=== PATIENT | male | born 1990 | race Hispanic/Latino ===

== ENCOUNTER 2016-08-16 22:23 | Emergency (ER) | payer SELFPAY ==
[2016-08-16 22:37] VITALS: PULSE 97; RESP 16; TEMP 98.5; O2SAT 97
[2016-08-16 22:52] VITALS: BP 130/59
[2016-08-16] MEDS ORDERED: TDAP Vaccine 0.5 mL Syr IM ONE (23:05)
--- NOTE | 2016-08-16 23:43 | ED PDOC ---
HPI: Skin/Bite Injury Time Seen by Provider: 08/16/16 22:54 Chief Complaint (Nursing): ENT Problem Chief Complaint (Provider): Left ear laceration History Per: Patient History/Exam Limitations: no limitations Onset/Duration Of Symptoms: Mins Current Symptoms Are (Timing): Still Present Quality Of Symptoms: Painful Severity: Mild Pain Scale Rating Of: 3 Additional Complaint(s): 26 yo male with no medical problems presents with left ear laceration. Pt was playing hurling and was hit in the left ear with a turcios (axe shaped stick) . No LOC. Pt denies headache, nausea, change in vision. Past Medical History Reviewed: Historical Data, Nursing Documentation, Vital Signs Vital Signs: Last Vital Signs Temp 98.5 F 08/16/16 22:34 Pulse 97 H 08/16/16 22:34 Resp 16 08/16/16 22:34 BP 130/59 L 08/16/16 22:34 Pulse Ox 97 08/16/16 22:34 - Medical History PMH: No Chronic Diseases - Family History Family History: States: No Known Family Hx - Allergies Allergies/Adverse Reactions: Allergies Allergy/AdvReac Type Severity Reaction Status Date / Time No Known Allergies Allergy Verified 08/16/16 22:34 Review of Systems ROS Statement: Except As Marked, All Systems Reviewed And Found Negative Skin: Positive for: Other (LAceration) Physical Exam - Reviewed Nursing Documentation Reviewed: Yes Vital Signs Reviewed: Yes - Physical Exam Appears: Positive for: Well, Non-toxic, No Acute Distress Head Exam: Positive for: ATRAUMATIC, NORMAL INSPECTION, NORMOCEPHALIC Skin: Positive for: Warm. Negative for: Normal Color (1 cm superficial Laceration left ear between antihelix stem and helix, mild bleeding ) Eye Exam: Positive for: Normal appearance, EOMI, PERRL ENT: Positive for: Normal ENT Inspection Neck: Positive for: Normal, Painless ROM Respiratory: Negative for: Accessory Muscle Use, Respiratory Distress Back: Positive for: Normal Inspection Extremity: Positive for: Normal ROM Neurologic/Psych: Positive for: Alert, Oriented - ECG O2 Sat by Pulse Oximetry: 97 Pulse Ox Interpretation: Normal Medical Decision Making Medical Decision Making: Wound irrigated. Steri-strips applied for good wound closure. Disposition - Clinical Impression Clinical Impression: Laceration of left ear, Tetanus toxoid vaccination administered at current visit - Patient ED Disposition Is Patient to be Admitted: No Counseled Patient/Family Regarding: Diagnosis - Disposition Referrals: [facility] [place] [Outside] Disposition: Routine/Home Disposition Time: 23:49 Condition: GOOD Instructions: Meir (ED)
== END 2016-08-17 00:02 | disposition home or self-care (01) ==
LOC: H.ER 22:23
DX: S01.312A Laceration without foreign body of left ear, initial encounter (principal); W22.8XXA Striking against or struck by other objects, initial encounter; Y92.89 Other specified places as the place of occurrence of the external cause

== ENCOUNTER 2016-10-26 17:53 | Emergency (ER) | payer OTHER ==
[2016-10-26 18:03] VITALS: BP 130/66; PULSE 73; RESP 16; TEMP 98.8; O2SAT 98
--- NOTE | 2016-10-26 18:26 | ED PDOC ---
Upper Extremity Pain/Injury Time Seen by Provider: 10/26/16 18:08 Chief Complaint (Nursing): Upper Extremity Problem/Injury Chief Complaint (Provider): shoulder injury Additional Complaint(s): 26yo M in ED for eval of left shoulder injury states that he was injured last night after playing football states that he ran into another teammate her shoulder rammed into his shoulder now with pain without radiation to shoulder unable to range pass 45degrees and swelling to anterior shoulder. Past Medical History Reviewed: Historical Data, Nursing Documentation, Vital Signs Vital Signs: Last Vital Signs Temp 98.8 F 10/26/16 18:00 Pulse 73 10/26/16 18:00 Resp 16 10/26/16 18:00 BP 130/66 10/26/16 18:00 Pulse Ox 98 10/26/16 18:00 - Medical History PMH: No Chronic Diseases - Family History Family History: States: No Known Family Hx - Home Medications Home Medications: Ambulatory Orders Medication Instructions Recorded Cyclobenzaprine [Cyclobenzaprine 10 mg PO BID #14 tab 10/26/16 HCl] Ketorolac Tromethamine [Toradol] 10 mg PO TID #20 cap 10/26/16 - Allergies Allergies/Adverse Reactions: Allergies Allergy/AdvReac Type Severity Reaction Status Date / Time No Known Allergies Allergy Verified 08/16/16 22:34 Review of Systems ROS Statement: Except As Marked, All Systems Reviewed And Found Negative Musculoskeletal: Positive for: Shoulder Pain Physical Exam - Reviewed Nursing Documentation Reviewed: Yes Vital Signs Reviewed: Yes - Physical Exam Appears: Positive for: Well, Non-toxic, No Acute Distress Skin: Positive for: Normal Color, Warm, DRY Cardiovascular/Chest: Positive for: Regular Rate, Rhythm Respiratory: Positive for: CNT, Normal Breath Sounds Extremity: Positive for: Other (left shoudler: AC joint tenderness, limited ROm due to pain, axillary nerve intact. ) Neurologic/Psych: Positive for: Alert, Oriented - ECG O2 Sat by Pulse Oximetry: 98 - Radiology X-Ray: Interpreted by Al X-Ray Interpretation: No Acute Disease - Progress ED Course And Treament: shoulder xray Medical Decision Making Medical Decision Making: Pt advised to f.u with PMD, placed in a sling. and advised to f.u with an orthopedics , given tordol IM for pain. Disposition - Clinical Impression Clinical Impression: Shoulder injury - Patient ED Disposition Is Patient to be Admitted: No Counseled Patient/Family Regarding: Studies Performed, Diagnosis, Need For Followup, Rx Given - Disposition Referrals: [facility] [place] [Outside] [facility] [place] [Outside] [facility] [Outside] Disposition: Routine/Home Disposition Time: 18:53 Condition: STABLE Prescriptions: Cyclobenzaprine [Cyclobenzaprine HCl] 10 mg PO BID #14 tab Ketorolac Tromethamine [Toradol] 10 mg PO TID #20 cap Instructions: Rotator Cuff Tendinitis (ED)
--- NOTE | 2016-10-26 18:56 | RAD ---
PROCEDURE: Radiographs of the Left Shoulder HISTORY: shoulder injury COMPARISON: No prior. FINDINGS: BONES: Normal. No fracture. JOINTS: Normal. Glenohumeral and acromioclavicular joints preserved. No osteoarthritis. SOFT TISSUES: Normal. OTHER FINDINGS: None. IMPRESSION: Normal radiographs of the left shoulder.
== END 2016-10-26 19:27 | disposition home or self-care (01) ==
LOC: H.ER 17:53
DX: S49.92XA Unspecified injury of left shoulder and upper arm, initial encounter (principal); W22.8XXA Striking against or struck by other objects, initial encounter; Y92.321 Football field as the place of occurrence of the external cause